=== PATIENT | female | born 1975 | race Caucasian/White ===

== ENCOUNTER 2019-01-08 21:32 | Emergency (ER) | payer OTHER ==
[~2019-01-08] VITALS: Ht 160 cm; Wt 96.8 kg
[2019-01-08] MEDS ORDERED: morphine INJ 10 MG/ML 1ML (SYR OR VIAL) IVP STA ×2 (21:42→22:31)
[2019-01-08] MEDS ORDERED: NS IV 1000 ML 1,000 ML IV SCH (21:45)
[2019-01-08] MEDS ORDERED: ONDANSETRON 4 MG/2 ML (SDV) Z0FRAN IVP ONE (21:45)
--- NOTE | 2019-01-08 21:49 | ED Abdominal Pain ---
General Stated Complaint: ABD PAIN Source of Information: Patient Exam Limitations: No Limitations History of Present Illness Date Seen by Provider: Jan 08, 2019 Time Seen by Provider: 21:38 Initial Comments The patient is a very pleasant 43-year-old female presents for evaluation of right lower quadrant abdominal pain which started approximately one hour ago. She states the pain started suddenly. She was feeling fine immediately before the pain began. She reports a history of a but denies any other abdominal surgeries. She also reports having some nausea. She denies fevers or chills, chest pain or shortness of breath, back or flank pain, pelvic pain/bleeding/discharge, dysuria, hematuria, diarrhea, or rectal bleeding. She is alert and oriented 4, calm, and appears to be in no distress at this time. Timing/Duration: 1 Hour Severity/Quality: Moderate Location: RLQ Radiation: No Radiation Activities at Onset: None Modifying Factors: Improves With Lying down (makes it worse) Associated Symptoms: Nausea/Vomiting Allergies and Home Medications Allergies Coded Allergies: No Known Drug Allergies (Unverified , 01/08/19) Patient Home Medication List Home Medication List Reviewed: Yes Review of Systems Review of Systems Constitutional: no symptoms reported EENTM: No Symptoms Reported Respiratory: No Symptoms Reported, See HPI Cardiovascular: No Symptoms Reported, See HPI Gastrointestinal: Abdominal Pain, Nausea, Vomiting Genitourinary: No Symptoms Reported, See HPI Musculoskeletal: no symptoms reported Skin: no symptoms reported Psychiatric/Neurological: No Symptoms Reported, See HPI Endocrine: No Symptoms Reported, See HPI Hematologic/Lymphatic: No Symptoms Reported, See HPI All Other Systems Reviewed Negative Unless Noted: Yes Past Qtdfftn-Bxzqqy-Enibsl Hx Past Med/Social Hx: Reviewed Nursing Past Med/Soc Hx Patient Social History Recent Foreign Travel: No Contact w/Someone Who Travel: No Physical Exam Vital Signs Vital Signs - First Documented 01/08/19 21:37 Temp 36.3 Pulse 66 Resp 18 B/P (MAP) 155/81 (105) O2 Delivery Room Air Capillary Refill : Height/Weight/BMI Height: '" Weight: lbs. oz. kg; BMI Method: General Appearance: WD/WN, no apparent distress HEENT: PERRL/EOMI, normal ENT inspection, TMs normal, pharynx normal Neck: non-tender, full range of motion, supple, normal inspection Respiratory: chest non-tender, lungs clear, normal breath sounds, no respiratory distress, no accessory muscle use Cardiovascular: normal peripheral pulses, regular rate, rhythm, no edema, no gallop, no JVD, no murmur Peripheral Pulses: 2+ Carotid (R), 2+ Carotid (L), 2+ Femoral (R), 2+ Femoral (L), 2+ Dorsalis Pedis (R), 2+ Left Dors-Pedis (L), 2+ Radial Pulses (R), 2+ Radial Pulses (L) Gastrointestinal: normal bowel sounds, soft, no organomegaly, no pulsatile mass, tenderness (+McBurney's point tenderness) Rectal: normal exam Genital/Rectal: normal genital exam Extremities: normal range of motion, non-tender, normal inspection, no pedal edema, no calf tenderness, normal capillary refill, pelvis stable Pelvic: normal external exam, normal adnexa, no cerv. motion tender, no masses, discharge Neurologic/Psychiatric: machine strap buckler II-XII nml as tested, no motor/sensory deficits, alert, normal mood/affect, oriented x 3 Skin: normal color, warm/dry Lymphatic: no adenopathy Progress/Results/Core Measures Results/Orders Lab Results Laboratory Tests Test 01/08/19 21:59 01/08/19 22:10 Range/Units White Blood Count 10.6 4.3-11.0 10^3/uL Red Blood Count 4.44 4.35-5.85 10^6/uL Hemoglobin 10.3 L 11.5-16.0 G/DL Hematocrit 35 35-52 % Mean Corpuscular Volume 78 L 80-99 FL Mean Corpuscular Hemoglobin 23 L 25-34 PG Mean Corpuscular Hemoglobin Concent 30 L 32-36 G/DL Red Cell Distribution Width 17.1 H 10.0-14.5 % Platelet Count 283 130-400 10^3/uL Mean Platelet Volume 10.4 7.4-10.4 FL Neutrophils (%) (Auto) 64 42-75 % Lymphocytes (%) (Auto) 28 12-44 % Monocytes (%) (Auto) 7 0-12 % Eosinophils (%) (Auto) 1 0-10 % Basophils (%) (Auto) 0 0-10 % Neutrophils # (Auto) 6.8 1.8-7.8 X 10^3 Lymphocytes # (Auto) 2.9 1.0-4.0 X 10^3 Monocytes # (Auto) 0.8 0.0-1.0 X 10^3 Eosinophils # (Auto) 0.1 0.0-0.3 10^3/uL Basophils # (Auto) 0.0 0.0-0.1 10^3/uL Sodium Level 140 135-145 MMOL/L Potassium Level 4.2 3.6-5.0 MMOL/L Chloride Level 103 98-107 MMOL/L Carbon Dioxide Level 26 21-32 MMOL/L Anion Gap 11 5-14 MMOL/L Blood Urea Nitrogen 12 7-18 MG/DL Creatinine 0.81 0.60-1.30 MG/DL Estimat Glomerular Filtration Rate > 60 BUN/Creatinine Ratio 15 Glucose Level 99 70-105 MG/DL Calcium Level 8.7 8.5-10.1 MG/DL Corrected Calcium 8.4 L 8.5-10.1 MG/DL Total Bilirubin 0.2 0.1-1.0 MG/DL Aspartate Amino Transf (AST/SGOT) 16 5-34 U/L Alanine Aminotransferase (ALT/SGPT) 13 0-55 U/L Alkaline Phosphatase 80 40-136 U/L Total Protein 7.3 6.4-8.2 GM/DL Albumin 4.4 3.2-4.5 GM/DL Lipase 43 8-78 U/L Urine Color YELLOW Urine Clarity CLEAR Urine pH 6.0 5-9 Urine Specific [place] 1.015 L 1.016-1.022 Urine Protein NEGATIVE NEGATIVE Urine Glucose (UA) NEGATIVE NEGATIVE Urine Ketones NEGATIVE NEGATIVE Urine Nitrite NEGATIVE NEGATIVE Urine Bilirubin NEGATIVE NEGATIVE Urine Urobilinogen 0.2 NORMAL MG/DL Urine Leukocyte Esterase NEGATIVE NEGATIVE Urine RBC (Auto) NEGATIVE NEGATIVE Urine RBC NONE /HPF Urine WBC NONE /HPF Urine Squamous Epithelial Cells 2-5 /HPF Urine Crystals NONE /LPF Urine Bacteria FEW H /HPF Urine Casts NONE /LPF Urine Mucus SMALL H /LPF Urine Culture Indicated NO My Orders Orders - VALERIE MCDANIEL DO Comprehensive Metabolic Panel (01/08/19 21:37) Lipase (01/08/19 21:37) Ua Culture If Indicated (01/08/19 21:37) Ed Iv/Invasive Line Start (01/08/19 21:37) Cbc With Automated Diff (01/08/19 21:37) Urine Bedside (01/08/19 21:37) Ct Abdomen/Pelvis W (01/08/19 21:42) Ns Iv 1000 Ml (Sodium Chloride 0.9%) (01/08/19 21:45) Morphine Injection (Morphine Injection (01/08/19 21:42) Ondansetron Injection (Zofran Injectio (01/08/19 21:45) Iohexol Injection (Omnipaque 350 Mg/Ml 1 (01/08/19 22:00) Received Contrast (Hold Metformin- Contr (01/08/19 22:00) Ns (Ivpb) (Sodium Chloride 0.9% Ivpb Bag (01/08/19 22:00) Morphine Injection (Morphine Injection (01/08/19 22:31) Medications Given in ED Current Medications Medications Dose Ordered Sig/Peng Route Start Time Stop Time Status Last Admin Dose Admin Iohexol 100 ml ONCE ONCE IV 01/08/19 22:00 01/08/19 22:01 DC 01/08/19 22:12 100 ML Ondansetron HCl 4 mg ONCE ONCE IVP 01/08/19 21:45 01/08/19 21:46 DC 01/08/19 21:57 4 MG Sodium Chloride 100 ml ONCE ONCE IV 01/08/19 22:00 01/08/19 22:01 DC 01/08/19 22:12 100 ML Vital Signs/I&O 01/08/19 21:37 Temp 36.3 Pulse 66 Resp 18 B/P (MAP) 155/81 (105) O2 Delivery Room Air Progress Progress Note : Progress Note @2300 - Patient and updated on lab and imaging results. The patient reports feeling much better. Workup shows evidence of cholelithiasis but no evidence of acute cholecystitis on exam or imaging. Workup today fails to reveal any emergent pathology. The patient is asking to go home and is stable for discharge. Advised the patient to follow up with her PCP in the next 1-2 days and to return to the emergency Department immediately for new or worsening symptoms. Departure Impression Primary Impression: Cholelithiasis Additional Impressions: Abdominal pain Nausea & vomiting Disposition: 01 HOME, SELF-CARE Condition: Stable Departure-Patient Inst. Decision time for Depature: 23:07 Referrals: MARTHA BELTRAN (PCP) Primary Care Physician Patient Instructions: Gallstones Add. Discharge Instructions: Take the prescribed medications as directed, as needed. Follow-up with your doctor in the next 1-2 days. Return to the emergency Department immediately for new or worsening symptoms. Scripts Dicyclomine HCl (Dicyclomine HCl) 20 Mg Tablet 20 MG PO Q6H PRN for ABDOMINAL PAIN for 5 Days, #20 TAB Prov: VALERIE MCDANIEL DO 01/08/19 Ondansetron (Ondansetron Odt) 4 Mg Tab.rapdis 4 MG PO Q6H PRN for NAUSEA/VOMITING-1ST LINE for 5 Days, #20 TAB Prov: VALERIE MCDANIEL DO 01/08/19 Hydrocodone/Acetaminophen ([place] 5-325 Tablet) 1 Each Tablet 1 TAB PO Q4-6HR for Pain MDD 10 TABS for 7 Days, #15 TAB Prov: VALERIE MCDANIEL DO 01/08/19 VALERIE MCDANIEL DO Jan 08, 2019 21:49 POS
[2019-01-08] MEDS ORDERED: HOLD METFORMIN - RECEIVED CONTRAST 20 ML VIAL IV SCH (22:00)
[2019-01-08] MEDS ORDERED: NS 100 ML (IVPB) BAG IV ONE (22:00)
[2019-01-08] MEDS ORDERED: IOHEXOL 350 MG/ML 100 ML (OMNIPAQUE 350) VIAL IV ONE (22:00)
[2019-01-08 22:03] LABS: WHITE BLOOD COUNT 10.6 10^3/uL (4.3-11.0)
[2019-01-08 22:04] LABS: BASOPHILS % (AUTO) 0 % (0-10); EOSINOPHILS # (AUTO) 0.1 10^3/uL (0.0-0.3); EOSINOPHILS % (AUTO) 1 % (0-10); HEMATOCRIT 35 % (35-52); HEMOGLOBIN 10.3 G/DL (11.5-16.0); LYMPHOCYTES # (AUTO) 2.9 X 10^3 (1.0-4.0); LYMPHOCYTES % (AUTO) 28 % (12-44); MEAN CORPUSCULAR HEMOGLOBIN 23 PG (25-34); MEAN CORPUSCULAR HGB CONC 30 G/DL (32-36); MEAN CORPUSCULAR VOLUME 78 FL (80-99); MEAN PLATELET VOLUME 10.4 FL (7.4-10.4); MONOCYTES # (AUTO) 0.8 X 10^3 (0.0-1.0); MONOCYTES % (AUTO) 7 % (0-12); NEUTROPHILS # (AUTO) 6.8 X 10^3 (1.8-7.8); NEUTROPHILS % (AUTO) 64 % (42-75); PLATELET COUNT 283 10^3/uL (130-400); RED CELL DISTRIBUTION WIDTH 17.1 % (10.0-14.5)
[2019-01-08 22:27] LABS: ALANINE AMINOTRANSFERASE 13 U/L (0-55); ALBUMIN 4.4 GM/DL (3.2-4.5); ALKALINE PHOSPHATASE 80 U/L (40-136); BILIRUBIN,TOTAL 0.2 MG/DL (0.1-1.0); BUN/CREATININE RATIO 15; CALCIUM 8.7 MG/DL (8.5-10.1); CARBON DIOXIDE 26 MMOL/L (21-32); CHLORIDE 103 MMOL/L (98-107); CREATININE SERUM 0.81 MG/DL (0.60-1.30); GFR ESTIMATED > 60; GLUCOSE 99 MG/DL (70-105); LIPASE 43 U/L (8-78); POTASSIUM 4.2 MMOL/L (3.6-5.0); SODIUM 140 MMOL/L (135-145); TOTAL PROTEIN 7.3 GM/DL (6.4-8.2)
[2019-01-08 22:28] LABS: BACTERIA,URINE FEW /HPF; BILIRUBIN,URINE NEGATIVE (NEGATIVE); CLARITY,URINE CLEAR; COLOR,URINE YELLOW; GLUCOSE, URINE (UA) NEGATIVE (NEGATIVE); KETONES,URINE NEGATIVE (NEGATIVE); LEUKOCYTE ESTERASE ,URINE NEGATIVE (NEGATIVE); NITRITE,URINE NEGATIVE (NEGATIVE); PROTEIN,URINE NEGATIVE (NEGATIVE)
[2019-01-08] MEDS ORDERED: ONDA4TAB11 PO (23:09)
[2019-01-08] MEDS ORDERED: DICY20TA10 PO (23:09)
[2019-01-08] MEDS ORDERED: HYDR-4226 PO (23:09)
[2019-01-08 23:11] VITALS: BP 148/78
--- NOTE | 2019-01-09 07:11 | Diagnostic Imaging Report ---
PROCEDURE: CT abdomen and pelvis with contrast. TECHNIQUE: Multiple contiguous axial images were obtained through the abdomen and pelvis after administration of intravenous contrast. Auto Exposure Controls were utilized during the CT exam to meet ALARA standards for radiation dose reduction. INDICATION: Right lower quadrant abdominal pain. COMPARISON: None. FINDINGS: Included portions of the lung bases show partially visualized 4 mm micronodule associated with the inferolateral margins of the major fissure on the left (image 1, series 2). CT abdomen: Moderate air and stool is noted scattered throughout the colon. Normal appendix is identified. Small bowel loops are nondistended. Multiple gallstones are identified within the lumen of the gallbladder. There is no appreciable gallbladder wall thickening nor pericholecystic free fluid on this exam. The kidneys, adrenal glands, spleen, pancreas, and liver have a normal CT appearance. There is no loculated fluid collection, free fluid, nor free air within the abdomen. No abnormal mesenteric or retroperitoneal adenopathy is seen. Osseous structures show no acute abnormalities. CT pelvis: Urinary bladder is unopacified and nondistended. There is no loculated fluid collection, free fluid, nor free air within the pelvis. No abnormal adenopathy is seen. Left adnexal cystic structure measures 2.3 x 2.8 cm; likely ovarian. Osseous structures show no acute abnormalities. IMPRESSION: 1. Cholelithiasis, but no CT evidence of acute cholecystitis. If there is concern for acute cholecystitis, dedicated right upper quadrant abdominal sonogram is recommended. 2. Left adnexal cyst; likely ovarian in nature. 3. Moderate colonic air and stool. Please correlate for constipation. 4. Partially visualized micronodule within the left lung base. May want to consider dedicated CT of the chest for complete characterization. This could be performed on a nonemergent basis. Dictated by: Dictated on workstation # [id number]
== END 2019-01-08 23:17 | disposition home or self-care (01) ==
LOC: ER FS 21:34
DX: K80.20 Calculus of gallbladder without cholecystitis without obstruction (principal)
CPT/HCPCS: 36415; 74177; 80053; 81000; 83690; 84703; 85025